=== PATIENT | female | born 2000 | race Caucasian/White ===

== ENCOUNTER 2023-07-23 14:59 | Emergency (ER) | payer BC ==
[~2023-07-23] VITALS: Ht 170.2 cm; Wt 45.4 kg
[2023-07-23 16:14] LABS: BASOPHILS % (AUTO) 0.2 % (0.0-2.0); HEMATOCRIT 38.9 % (31.2-41.9); HEMOGLOBIN 13.6 g/dL (10.9-14.3); LYMPHOCYTES # (AUTO) 1.1 K/uL (0.8-4.8); LYMPHOCYTES % (AUTO) 7.5 % (20.5-51.5); MEAN CORPUSCULAR HEMOGLOBIN 31.3 uug (24.7-32.8); MEAN CORPUSCULAR HGB CONC 35 g/dL (32.3-35.6); MEAN CORPUSCULAR VOLUME 89.8 fL (75.5-95.3); MONOCYTES # (AUTO) 0.8 K/uL (0.1-1.30); MONOCYTES % (AUTO) 5.2 % (0.0-11.0); NEUTROPHILS # (AUTO) 12.8 K/uL (1.8-8.9); NEUTROPHILS % (AUTO) 87.1 % (38.5-71.5); PLATELET COUNT (AUTO) 273 K/uL (179-408); RED BLOOD CELL COUNT(AUTO) 4.33 MIL/uL (3.63-4.92); WHITE BLOOD COUNT (AUTO) 14.7 K/uL (3.8-11.8)
[2023-07-23 16:15] LABS: DIFFERENTIAL COMMENT 1
[2023-07-23 16:15] LABS: *BLOOD, URINE 2+ (NEGATIVE); *KETONES,URINE 1+ (NEGATIVE); *PROTEIN,URINE 1+ (NEGATIVE); *UROBILINOGEN,URINE 0.2 E.U./dl (NORMAL); LEUKOCYTE ESTERASE ,URINE NEGATIVE (NEGATIVE); NITRITE, URINE NEGATIVE (NEGATIVE); PH,URINE 5.5 (5.0-8.0); UGLUCOSE NEGATIVE (NEGATIVE)
[2023-07-23 16:22] LABS: *BILIRUBIN,URIN 1+ (NEGATIVE)
[2023-07-23 16:23] LABS: *CLARITY,URINE SLIGHTLY CLOUDY (CLEAR); *COLOR,URINE YELLOW (YELLOW)
[2023-07-23 16:24] LABS: CALCIUM 9.2 mg/dL (8.5-10.1); CARBON DIOXIDE 24 mmol/L (21-32); CHLORIDE 102 mmol/L (98-107); CREATININE 1.2 mg/dL (0.6-1.3); GLUCOSE 95 mg/dL (74-106); POTASSIUM 3.7 mmol/L (3.5-5.1); SODIUM SERUM 138 mmol/L (136-145); UREA NITROGEN, BLOOD 14 mg/dL (7-18)
[2023-07-23 16:29] LABS: ALANINE AMINOTRANSFERASE 11 U/L (14-59); ALBUMIN 4.1 g/dL (3.4-5.0); ALKALINE PHOSPHATASE 51 U/L (50-136); ASPARTATE AMINOTRANSFERASE 10 U/L (15-37); BILIRUBIN,DIRECT 0.1 mg/dL (0.0-0.2); BILIRUBIN,TOTAL 0.6 mg/dL (0.2-1.0); LIPASE 178 U/L (16-77); TOTAL PROTEIN, SERUM 7.9 g/dL (6.4-8.2)
[2023-07-23 16:33] LABS: BACTERIA,URINE FEW /HPF (NONE SEEN); SQUAMOUS EPITHELIAL CELL,UR MODERATE /HPF (NONE SEEN); WBC,URINE 0-3 /HPF (0-3)
[2023-07-23 16:34] LABS: CALCIUM OXALATE CRYSTALS,UR MODERATE /HPF (NONE SEEN); URINE AMORPHOUS URATE MANY /HPF
[2023-07-23 16:38] LABS: PREGNANCY TEST SERUM QUAN < 1 miul/L (0-6)
[2023-07-23] MEDS ORDERED: OXYC-128 PO ×2 (18:30→18:32)
[2023-07-23] MEDS ORDERED: TAMS-3 PO (18:32)
[2023-07-23 18:40] VITALS: BP 122/70; TEMP 98; O2SAT 100
== END 2023-07-23 18:40 | disposition home or self-care (01) ==
LOC: ER 15:15
DX: N20.2 Calculus of kidney with calculus of ureter (principal); R10.2 Pelvic and perineal pain; N13.30 Unspecified hydronephrosis
CPT/HCPCS: 36415; 76856; 83690; 85025; 85730; A4606; A4663